=== PATIENT | female | born 1950 | race Caucasian/White ===

== ENCOUNTER 2023-02-27 09:27 | Emergency (ER) | payer OTHER ==
[~2023-02-27] VITALS: Ht 170.2 cm; Wt 61.2 kg
[2023-02-27 09:59] LABS: HEMATOCRIT 38.8 % (31.2-41.9); MEAN CORPUSCULAR HEMOGLOBIN 32.4 uug (24.7-32.8); MEAN CORPUSCULAR VOLUME 96.5 fL (75.5-95.3); PLATELET COUNT (AUTO) 91 K/uL (179-408)
[2023-02-27 10:06] LABS: CARBON DIOXIDE 27 mmol/L (21-32); CHLORIDE 108 mmol/L (98-107); POTASSIUM 4.1 mmol/L (3.5-5.1)
[2023-02-27 10:07] LABS: CREATININE 0.8 mg/dL (0.6-1.3); UREA NITROGEN, BLOOD 31 mg/dL (7-18)
[2023-02-27] MEDS ORDERED: IV NORMAL SALINE 1000 ML BAG IV ONE (10:30)
[2023-02-27] MEDS ORDERED: NEOMY/BACITRA/POLYMYXIN B OINT UD PACKET TP ONE ×2 (10:30→10:36)
[2023-02-27] MEDS ORDERED: TDAP DIPH,PERTUSS,TET VAC/PF 0.5 ML DISP.SYRIN IM ONE ×2 (10:30→10:37)
[2023-02-27 11:37] LABS: *BILIRUBIN,URIN NEGATIVE (NEGATIVE); *CLARITY,URINE CLEAR (CLEAR); *COLOR,URINE YELLOW (YELLOW); *KETONES,URINE NEGATIVE (NEGATIVE); *UROBILINOGEN,URINE 0.2 E.U./dl (NORMAL); LEUKOCYTE ESTERASE ,URINE 1+ (NEGATIVE); NITRITE, URINE POSITIVE (NEGATIVE); UGLUCOSE NEGATIVE (NEGATIVE)
[2023-02-27 12:17] LABS: *BLOOD, URINE TRACE (NEGATIVE)
[2023-02-27] MEDS ORDERED: CEPH500C2 PO (12:34)
[2023-02-27] MEDS ORDERED: CEphaleXIN 500 MG CAPSULE ONE (12:42)
[2023-02-27] MEDS ORDERED: CEphaleXIN 500 MG CAPSULE PO ONE (12:45)
[2023-02-27 13:02] LABS: BACTERIA,URINE MANY /HPF (NONE SEEN); RBC,URINE 0-3 /HPF (0-3); WBC,URINE 20-50 /HPF (0-3)
[2023-02-27 15:39] VITALS: BP 124/60; O2SAT 98
== END 2023-02-27 15:39 | disposition home or self-care (01) ==
LOC: ER 09:27
DX: S51.012A Laceration without foreign body of left elbow, initial encounter (principal); S16.1XXA Strain of muscle, fascia and tendon at neck level, initial encounter; S09.90XA Unspecified injury of head, initial encounter; E86.0 Dehydration; N39.0 Urinary tract infection, site not specified; M50.30 Other cervical disc degeneration, unspecified cervical region; R07.89 Other chest pain; E03.9 Hypothyroidism, unspecified; Z88.0 Allergy status to penicillin; Z88.5 Allergy status to narcotic agent; W18.39XA Other fall on same level, initial encounter; Y93.89 Activity, other specified; Y92.89 Other specified places as the place of occurrence of the external cause; Y99.8 Other external cause status
CPT/HCPCS: 36415; 70450; 71045; 72125; 72170; 73080; 85025; 90715; 93005; A4663; C1758; J7040